=== PATIENT | male | born 1970 | race African-American/Black ===

== ENCOUNTER 2020-03-18 21:28 | Emergency (ER) | payer OTHER ==
[~2020-03-18] VITALS: Ht 188 cm; Wt 97.7 kg
[2020-03-18] MEDS ORDERED: KETOROLAC 30MG/ML VIAL IM ONE (23:00)
[2020-03-18] MEDS ORDERED: MECLIZINE 25MG TABLET PO ONE (23:45)
[2020-03-19 00:34] VITALS: BP 148/78
== END 2020-03-19 00:35 | disposition home or self-care (01) ==
LOC: ER 21:28
DX: H61.21 Impacted cerumen, right ear (principal)
CPT/HCPCS: 96372; 99283; J1885; J8597

== ENCOUNTER 2020-03-19 05:13 | Emergency (ER) | payer OTHER ==
[~2020-03-19] VITALS: Ht 188 cm; Wt 96.1 kg
[2020-03-19 06:15] VITALS: BP 155/88
[2020-03-19] MEDS ORDERED: MECLIZINE 25MG TABLET PO ONE (06:30)
[2020-03-19] MEDS ORDERED: ONDANSETRON HCL 4MG TABLET PO ONE (06:30)
== END 2020-03-19 09:14 | disposition home or self-care (01) ==
LOC: ER 05:13
DX: H72.91 Unspecified perforation of tympanic membrane, right ear (principal)
CPT/HCPCS: 99283; J8597; Q0162

== ENCOUNTER 2020-07-14 00:42 | Inpatient (IN) | payer OTHER ==
[~2020-07-14] VITALS: Ht 188 cm; Wt 93.4 kg
[2020-07-14] MEDS ORDERED: MORPHINE SULFATE 4 MG/ML CPJ (NOT FOR IM USE) IV STA (02:04)
[2020-07-14] MEDS ORDERED: SODIUM CHLORIDE 0.9% 1,000 ML IV ONE (02:04)
[2020-07-14] MEDS ORDERED: ONDANSETRON HCL 4MG/2ML INJ IV STA (02:04)
[2020-07-14 02:48] LABS: BASOPHILS % 0.7 % (0.0-2.0); EOSINOPHILS % 0.2 % (0.0-5.0); HEMATOCRIT. 40.3 % (42.0-52.0); HEMOGLOBIN. 13.3 g/dL (14.0-18.0); LYMPHOCYTES % 17.8 % (20.0-50.0); MEAN CORPUSCULAR HEMOGLOBIN 27.7 pg (28.0-32.0); MEAN CORPUSCULAR VOLUME 84.1 fL (80.0-94.0); MEAN PLATELET VOLUME 8.5 fl (7.4-10.4); MONOCYTES % 8.9 % (2.0-8.0); NEUTROPHILS % 72.4 % (40.0-76.0); PLATELET 224 x1000/uL (130-400); RED BLOOD CELL COUNT 4.79 mill/uL (4.7-6.1); RED CELL DISTRIBUTION WIDTH 13.6 % (11.6-14.6)
[2020-07-14 02:54] LABS: CHLORIDE 107 mEq/L (98-107)
[2020-07-14] MEDS ORDERED: NA PHOS,M-B/NA PHOS,DI-BA ENEMA 118ML PR ONE (04:30)
[2020-07-14] MEDS ORDERED: MINERAL OIL ENEMA 133ML PR ONE (04:30)
[2020-07-14] MEDS ORDERED: ONDANSETRON HCL 4MG/2ML INJ IV ONE (04:45)
[2020-07-14] MEDS ORDERED: METOCLOPRAMIDE HCL 10MG/2ML VIAL IV ONE (06:30)
[2020-07-14] MEDS ORDERED: ONDANSETRON HCL 4MG/2ML INJ IV PRN (07:15)
[2020-07-14] MEDS ORDERED: ACETAMINOPHEN 650MG/20.3ML UDC GT PRN (07:15)
[2020-07-14] MEDS ORDERED: MAGNESIUM CITRATE 300ML SOLUTION PO NR (08:00)
[2020-07-14] MEDS ORDERED: MINERAL OIL ENEMA 133ML PR NR (08:00)
[2020-07-14 08:19] LABS: HEMATOCRIT. 38.9 % (42.0-52.0); HEMOGLOBIN. 12.4 g/dL (14.0-18.0); MEAN CORPUSCULAR HEMOGLOBIN 27.3 pg (28.0-32.0); MEAN CORPUSCULAR VOLUME 85.3 fL (80.0-94.0); MEAN PLATELET VOLUME 8.1 fl (7.4-10.4); PLATELET 200 x1000/uL (130-400); RED BLOOD CELL COUNT 4.56 mill/uL (4.7-6.1); RED CELL DISTRIBUTION WIDTH 13.6 % (11.6-14.6)
[2020-07-14 08:20] LABS: CHLORIDE 110 mEq/L (98-107)
[2020-07-14 08:45] LABS: PLATELET ESTIMATE NORMAL
[2020-07-14 09:00] VITALS: BP 125/72
[2020-07-14 09:45] VITALS: BP 123/72
[2020-07-14] MEDS ORDERED: SODIUM CHLORIDE 0.9% INJ 3ML FLUSH IVF SCH (14:00)
[2020-07-14 16:00] VITALS: BP 130/68
[2020-07-14 17:41] VITALS: BP 130/68
== END 2020-07-14 18:05 | disposition home or self-care (01) | DRG 392 ==
LOC: ER 01:12 → 6EST 06:44 → ENRESERV 07:51 → ER 09:02
PROVIDERS: ADMIT Ophthalmology; ATTEND Ophthalmology
DX: K59.00 Constipation, unspecified (principal); E87.2 Acidosis; D72.829 Elevated white blood cell count, unspecified; E86.0 Dehydration; Z79.899 Other long term (current) drug therapy
CPT/HCPCS: 36415; 74176; 80048; 80053; 83605; 85025; J2270; J2405; J2765; J7030